=== PATIENT | female | born 1975 | race Caucasian/White ===

== ENCOUNTER → 2019-04-21 08:02 | Outpatient (CLI) | payer BC, SELFPAY ==
--- NOTE | 2019-04-21 | DI.MG.S_ITS ---
BILATERAL DIGITAL SCREENING MAMMOGRAM 3D/2D WITH CAD: 04/21/2019 CLINICAL: Routine screening. Family history of breast cancer. Comparison is made to exams dated: 12/17/2017 mammogram - [facility], 10/22/2016 mammogram, and 10/14/2015 mammogram - [facility]. The tissue of both breasts is extremely dense, which lowers the sensitivity of mammography. Current study was also evaluated with a Computer Aided Detection (CAD) system. There is an oval low density asymmetry with an indistinct and circumscribed margin in the left breast posterior depth central to the nipple seen on the craniocaudal view only. No other significant masses, calcifications, or other findings are seen in either breast. IMPRESSION: INCOMPLETE: NEEDS ADDITIONAL IMAGING EVALUATION The oval low density asymmetry in the left breast is indeterminate. Mediolateral and spot compression views as well as additional views with possible ultrasound are recommended. This exam was interpreted at Station ID: [id number]. NOTE: For mammograms, a report in lay terms will be sent to the patient. Approximately 15% of breast malignancies will not be visualized mammographically. In the management of a palpable breast mass, a negative mammogram must not discourage biopsy of a clinically suspicious lesion. Electronically Signed By: Sukhwinder esposito/meme:04/21/2019 17:08:38 letter sent: Additional Imaging Needed ACR BI-RADS Category 0: Incomplete [id number]
== END ==
PROVIDERS: PCP Student in an Organized Health Care Education/Training Program; Visit Provider Student in an Organized Health Care Education/Training Program
DX: Z12.31 Encounter for screening mammogram for malignant neoplasm of breast (principal); Z80.3 Family history of malignant neoplasm of breast
CPT/HCPCS: 77063; 77067

== ENCOUNTER → 2019-05-08 09:47 | Outpatient (CLI) | payer BC, SELFPAY ==
--- NOTE | 2019-05-08 | DI.MG.S_ITS ---
UNILATERAL LEFT DIGITAL DIAGNOSTIC MAMMOGRAM 3D/2D WITH ADDITIONAL VIEWS: 05/08/2019 CLINICAL: Additional evaluation requested from prior study. Comparison is made to exams dated: 04/21/2019 mammogram, 12/17/2017 mammogram - [facility], and 10/22/2016 mammogram - [facility] ([place], [place]). The tissue of left breast is extremely dense, which lowers the sensitivity of mammography. There is an oval 6 mm low density asymmetry with a partially obscured and circumscribed margin in the left breast posterior depth central to the nipple seen on the craniocaudal view only. This persists with spot compression but not seen in other projections. This is less prominent than on the screening study. No other significant masses or calcifications are seen in the breast. IMPRESSION: INCOMPLETE: NEEDS ADDITIONAL IMAGING EVALUATION The oval low density asymmetry in the left breast is indeterminate. An ultrasound is recommended. This was performed immediately following this exam. This exam was interpreted at Station ID: [id number]. NOTE: For mammograms, a report in lay terms will be sent to the patient. Approximately 15% of breast malignancies will not be visualized mammographically. In the management of a palpable breast mass, a negative mammogram must not discourage biopsy of a clinically suspicious lesion. Electronically Signed By: Melanie floyd/:05/08/2019 11:37:40 ACR BI-RADS Category 0: Incomplete [id number]
--- NOTE | 2019-05-08 12:56 | DI.US.S_ITS ---
ULTRASOUND OF LEFT BREAST: 05/08/2019 CLINICAL: Patient returns today to evaluate a focal asymmetry in the left breast. Comparison is made to exams dated: 05/08/2019 mammogram, 04/21/2019 mammogram, 12/17/2017 mammogram - [facility], and 10/22/2016 mammogram - [facility]. Real-time ultrasound of the left breast was performed. Luciano scale images of the real-time examination were reviewed. No abnormalities were seen sonographically in the left breast. Specifically, no finding to correspond to the patient's screening mammogram abnormality. IMPRESSION: PROBABLY BENIGN There is no sonographic correlate to the patient's screening mammogram abnormality and no evidence of malignancy. A follow-up mammogram in 6 months is recommended to demonstrate stability. Finding and recommendations were conveyed to the patient at time of exam. This exam was interpreted at Station ID: [id number]. Electronically Signed By: Melanie floyd/:05/24/2019 12:19:06 letter sent: Followup Recommended Ultrasound BI-RADS: 3 Probably benign
== END ==
PROVIDERS: PCP Student in an Organized Health Care Education/Training Program; Visit Provider Student in an Organized Health Care Education/Training Program
DX: R92.8 Other abnormal and inconclusive findings on diagnostic imaging of breast (principal); N64.89 Other specified disorders of breast
CPT/HCPCS: 76642; 77065; G0279